=== PATIENT | male | born 1965 | race Caucasian/White ===

== ENCOUNTER → 2018-11-21 09:00 | Outpatient (CLI) | payer OTHER, SELFPAY ==
--- NOTE | 2018-11-21 09:08 | XR_ITS ---
PROCEDURE: XR HIP LT 2-3V W/PELVIS CLINICAL INDICATION: left hip pain COMPARISON: No exams were available for comparison FINDINGS: Moderate to severe osteoarthritic changes are present involving the left hip with loss of joint space superiorly and prominent osteophytes along the inferior aspect of the hip joint. There is cortical thickening involving the medial aspect of the left femoral neck. There is some mild flattening of the femoral head. There are mild osteoarthritic changes of the right hip. IMPRESSION: Moderate to severe osteoarthritis of the left hip with with dysplastic changes of the femoral head and cortical thickening of the left femoral neck medially Dictated by: Blu Luke MD 11/21/2018 16:50 Signed by: <Electronically signed by Blu Luke MD in [place]> 11/21/2018 16:50
== END ==
PROVIDERS: PCP Nurse Practitioner; Visit Provider Orthopaedic Surgery
DX: M25.552 Pain in left hip (principal)
CPT/HCPCS: 73502

== ENCOUNTER 2023-02-21 20:00 | Emergency (ER) | payer MEDICAID, SELFPAY ==
[2023-02-21 20:02] VITALS: BP 104/66; PULSE 86; RESP 20; TEMP 36.6; O2SAT 96; BMI 43.4
--- NOTE | 2023-02-21 20:11 | ECG_ITS ---
APPROVED REPORT Exam: Resting ECG HR:85 bpm ECG Measurements Heart Rate 85 AXES VT 139 P 26 QRSd 80 QRS 48 QT 384 T 45 QTc 426 Conclusion SINUS RHYTHM NONSPECIFIC T-WAVE ABNORMALITY BORDERLINE ECG UNCONFIRMED REPORT Electronically signed by : Osito Rocha MD 02/22/2023 17:11:11
--- NOTE | 2023-02-21 20:39 | XR_ITS ---
PROCEDURE INFORMATION: Exam: XR Chest Exam date and time: 02/21/2023 8:45 PM Age: 57 years old Clinical indication: Shortness of breath; Additional info: SOA TECHNIQUE: Imaging protocol: Radiologic exam of the chest. Views: 1 view. COMPARISON: No relevant prior studies available. FINDINGS: Lungs: No evidence of acute pulmonary disease or infiltrates; lung dunne appear clear. Pleural spaces: No evidence of pleural effusion, pneumothorax, or pleural thickening in the visualized pleural spaces. Heart/Mediastinum: No evidence of mediastinal widening or cardiac silhouette enlargement; the mediastinum and heart appear within normal limits for contour and size. Bones/joints: No evidence of acute osseous abnormalities within the visualized portions of the thoracic spine and ribs. Osseous structures appear appropriate for patient age. IMPRESSION: Negative study. No acute cardiopulmonary abnormalities identified. Osseous structures within the visualized portions of the thoracic spine and ribs show no acute abnormalities and appear appropriate for patient age.
--- NOTE | 2023-02-21 20:39 | CT_ITS ---
PROCEDURE INFORMATION: Exam: CTA Chest With Contrast Exam date and time: 02/21/2023 9:56 PM Age: 57 years old Clinical indication: Shortness of breath; Additional info: SOA, hypxemia, history of clots TECHNIQUE: Imaging protocol: Computed tomographic angiography of the chest with contrast. Exam focused on the arteries. 3D rendering (Not supervised by radiologist): MIP and/or 3D reconstructed images were created by the technologist. Radiation optimization: All CT scans at this facility use at least one of these dose optimization techniques: automated exposure control; mA and/or kV adjustment per patient size (includes targeted exams where dose is matched to clinical indication); or iterative reconstruction. Contrast material: ISOVUE; Contrast volume: 70 ml; Contrast route: INTRAVENOUS (IV); REPORTING DATA: Count of CT and Cardiac NM exams in prior 12 months: This patient has received 0 known CTs and 0 known cardiac nuclear medicine studies in the 12 months prior to the current study. COMPARISON: CR XR CHEST PORTABLE 02/21/2023 8:45 PM FINDINGS: Pulmonary arteries: Normal. No pulmonary emboli. Aorta: There is atherosclerotic disease of the visualized aorta and its major branch vessels. Lungs: Scattered areas of bronchial wall thickening which are likely chronic inflammatory. A few areas of subpleural reticulation are noted, nonspecific. There are scattered pulmonary nodules such as a 6 mm right upper lobe nodule (image 70 series 5). Fleischner Society guidelines for follow-up are detailed below. There are some areas of consolidative change of the peripheral right lung base which could reflect developing infection. Pleural spaces: Unremarkable. No pneumothorax. No pleural effusion. Heart: Unremarkable. No cardiomegaly. No pericardial effusion. Lymph nodes: There are mildly prominent mediastinal lymph nodes which are nonenlarged. Bones/joints: There is diffuse degenerative disease of the visualized osseous structures. Soft tissues: Unremarkable. IMPRESSION: 1. There are some areas of consolidative change of the peripheral right lung base which could reflect developing infection. 2. Pulmonary nodules measuring less than 6 mm. For patients at low risk (minimal or absent history of smoking and of other known risk factors), no routine follow-up is indicated. For patients at high risk (history of smoking or of other known risk factors), consider optional CT Chest at 12 months. (Reference: Jerry). REFERENCES: Jerry Aquino et al. Guidelines for Management of Incidental Pulmonary Nodules Detected on CT Images: From the Fleischner Society 2017. Radiology. 2017;284(1):228-243.
--- NOTE | 2023-02-21 20:49 | [facility].EDGENADL ---
Discharge Plan Disposition Patient Disposition: Home, Self-Care Prescriptions Prescriptions: New lidocaine 5 % adhesive patch,medicated 1 patch topical DAILY Qty: 15 0RF Rx Instructions: leave on most painful area for up to 12 hrs No Action thyroid (pork) [[employer] Thyroid] 60 mg tablet 60 mg PO DAILY diclofenac sodium 75 mg tablet,delayed release (DR/EC) 75 mg PO BID hydrochlorothiazide 25 mg tablet 25 mg PO DAILY Referrals Follow up/Referrals: Shaina Cuevas APRN [Primary Care Provider] - See instructions Activity Restrictions/Add. Instructions Additional Instructions/Restrictions: Call your family doctor to establish care for this visit to the emergency department and schedule follow-up within 48 hours to ensure improvement. If you have any worsening of your condition or any other concerning signs or symptoms, return to the emergency department or your primary care doctor for further evaluation. Before the holiday, ask your family doctor to redraw labs to look for kidney function. Your creatinine today was 1.8, be sure to stay plenty hydrated prior to this visit. Lidocaine patches sent to the pharmacy for symptomatic relief. Clinical Impressions Clinical Impression: Shortness of breath, RANULFO (acute kidney injury) Discharge ED Provider: Seamus Lopez General Adult HPI General Chief complaint: Shortness of Breath/Dyspnea Stated complaint: SOA,dizzy Time Seen by Provider: 02/21/23 20:03 Mode of Arrival: Wheelchair Source of Information: Patient and Spouse Limitations: No Limitations Description of Symptoms (Recalled from ER Triage Doc. by RN): Patient states he started feeling short of breath around 6pm. Has history of shortness of breath but reports he had taken tizanidine prior to episode and was feeling dizzy. States he has prescription for medication but was out for a few days and thinks the medication caused the dizziness. Patient reports history of throat cancer and blood clots so came to get evaluated. 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 This has been going on for a few days. Patient states it got worse today, 02/21. He has been taking tizanidine for relaxation and pain. Took 2 of those prior to arrival. Family at bedside states that patient's lips were blue, he was pale, working hard to breathe. Patient denies chest pain, nausea or vomiting, fevers or chills, but has had difficulty breathing, especially with exertion. Denies PND orthopnea, any other positional changes. Related Data Home Medications Medication Instructions Recorded Confirmed diclofenac sodium 75 mg 75 mg PO BID 11/21/18 11/21/18 tablet,delayed release hydrochlorothiazide 25 mg tablet 25 mg PO DAILY 11/21/18 11/21/18 thyroid (pork) 60 mg tablet ([employer] 60 mg PO DAILY 11/21/18 Thyroid) Previous Rx's Medication Instructions Recorded lidocaine 5 % topical patch 1 patch topical DAILY #15 ea 02/21/23 Allergies Allergy/AdvReac Type Severity Reaction Status Date / Time No Known Allergies Allergy Verified 11/21/18 10:39 [facility] Disclaimer: The information contained in this section may have been updated after the patient was seen, as this information can be updated by other users. Social History Smoking Status: Never smoker alcohol intake: never substance use type: denies use current occupational status: employed Travel in the last 8 weeks: Inside the [place] ROS Obtained: Yes All systems reviewed & no additional complaints except as documented Physical Exam General General appearance: alert and in no apparent distress Head Head exam: atraumatic and normocephalic Eye Eye exam: Present normal appearance, PERRL and EOMI ENT ENT exam: Present mucous membranes moist Neck Neck exam: Present normal inspection,
[2023-02-21 20:52] LABS: Basophils # 0.1 K/mm3 (0-0.2); Basophils % 0.5 % (0.1-2.0); Eosinophils # 0.1 K/mm3 (0.0-0.4); Eosinophils % 0.9 % (0.1-12.0); Hematocrit 40.9 % (42.0-52.0); Hemoglobin 13.1 g/dL (14.1-18.0); Lymphocytes # 2.4 K/mm3 (0.7-4.5); Lymphocytes % 26.8 % (10-50); Mean Corpuscular HGB Conc 32.1 g/dL (31.8-35.4); Mean Corpuscular Hemoglobin 26.6 pg (27.0-31.2); Mean Corpuscular Volume 82.8 fl (80-94); Mean Platelet Volume 7.5 fl (7.4-10.4); Monocytes % 10.7 % (1.7-9.3); Neutrophils # 5.6 K/mm3 (1.8-7.8); Neutrophils % 61.1 % (37.0-80.0); Platelet Count 567 K/mm3 (142-424); Red Blood Count 4.94 M/mm3 (4.60-6.20); Red Cell Distribution Width 15.2 % (11.5-17.5); White Blood Count 9.1 K/mm3 (4.8-10.8)
[2023-02-21 20:57] LABS: Alanine Aminotransferase 30 U/L (12-78); Albumin Level 4.4 g/dl (3.5-5.0); Albumin/Globulin Ratio 1.1 (1.1-1.8); Alkaline Phosphatase 155 U/L (38-126); Anion Gap 14.2 mEq/L (5-15); Aspartate Amino Transferase 41 U/L (17-59); Bilirubin,Total 0.3 mg/dl (0.2-1.3); Blood Urea Nitrogen 26 mg/dl (9-20); Carbon Dioxide 26 mmol/L (22.0-30.0); Chloride 99 mmol/L (98-107); Creatinine Clearance Estimated 49 mL/min (50-200); Estimated Glomerular Filt Rate 39 ml/min (>60); GFR (African American) 47 ML/MIN (>60); Glucose 98 mg/dl (74-100); Potassium 4.2 mmoL/L (3.5-5.1); Sodium 135 mmol/L (136-145); Total Protein,Serum 8.4 g/dl (6.3-8.2)
[2023-02-21 21:06] LABS: NT Pro Brain Natriuretic Pep. 855 pg/mL (0-125)
[2023-02-21 21:09] LABS: Troponin I 0.02 ng/ml (0.00-0.034)
[2023-02-21 21:19] LABS: ABG Methemoglobin 0.3 % (0.4-1.5); Carboxyhemoglobin 0.6 (0.0-5.0)
--- NOTE | 2023-02-21 22:04 | PC.NURSE ---
patient back in room from CT at this time.
[2023-02-21 22:30] VITALS: BP 119/70; PULSE 71; RESP 14; O2SAT 96
[2023-02-22 00:10] VITALS: BP 108/66; PULSE 72; RESP 18; TEMP 36.6; O2SAT 94
== END 2023-02-22 00:11 | disposition home or self-care (01) ==
PROVIDERS: Emergency Provider Emergency Medicine; PCP Nurse Practitioner
DX: R06.02 Shortness of breath (principal); E86.0 Dehydration; N17.9 Acute kidney failure, unspecified; R42 Dizziness and giddiness; Z86.711 Personal history of pulmonary embolism; Z86.718 Personal history of other venous thrombosis and embolism; Z79.01 Long term (current) use of anticoagulants
CPT/HCPCS: 71045; 71275; 80053; 82375; 83050; 83880; 84484; 85025; 93005; 96374; 96375; 99285; J0131; Q9967